=== PATIENT | male | born 1995 | race Two or more races ===

== ENCOUNTER 2018-02-10 13:40 | Emergency (ER) | payer OTHER ==
--- NOTE | 2018-02-10 15:51 | ED Physician Documentation ---
PD HPI URI - Stated complaint Stated Complaint: OBJECT STUCK IN THROAT - Chief complaint Chief Complaint: Heent - History obtained from History obtained from: Patient - History of Present Illness Timing - onset: How many hours ago (3), Today Timing duration: Hours (3) Timing details: Abrupt onset (eating chicken and rice, felt that it got stuck in esophagus. No choking nor dyspnea. Tried sips water but just vomiting it back up. Having to spit out saliva periodically as well. No prior similar. No regular reflux.) Associated symptoms: No: Fever, Chills, Nasal congestion, Dry cough Contributing factors: No: Sick contact, Travel, Immunocompromised Similar symptoms before: Has not had sx before Recently seen: Not recently seen Review of Systems GI: reports: Other (no regular reflux nor heartburn). denies: Abdominal Pain, Diarrhea Skin: denies: Rash, Lesions Neurologic: denies: Generalized weakness, Focal weakness, Numbness, Near syncope PD PAST MEDICAL HISTORY - Past Medical History Past Medical History: No - Past Surgical History Past Surgical History: No - Present Medications Home Medications: Ambulatory Orders Medication Instructions Recorded Confirmed No Known Home Medications [No 02/10/18 02/10/18 Known Home Medications] - Allergies Allergies/Adverse Reactions: Allergies Allergy/AdvReac Type Severity Reaction Status Date / Time No Known Drug Allergies Allergy Verified 02/10/18 13:58 - Social History Does the pt smoke?: No Smoking Status: Never smoker - Immunizations Immunizations are current?: Yes PD ED PE NORMAL - Vitals Vital signs reviewed: Yes - General General: Alert and oriented X 3, No acute distress (holding emesis bag and spitting saliva periodically. ), Well developed/nourished - HEENT HEENT: Pharynx benign - Neck Neck: Supple, no meningeal sign, No adenopathy - Cardiac Cardiac: RRR, No murmur - Respiratory Respiratory: Clear bilaterally - Abdomen Abdomen: Normal bowel sounds, Soft, Non tender, Non distended - Back Back: No CVA TTP - Derm Derm: Normal color, Warm and dry - Extremities Extremities: No deformity, No tenderness to palpate, Normal ROM s pain - Neuro Neuro: Alert and oriented X 3, No motor deficit, Normal speech - Psych Psych: Normal mood, Normal affect Results - Vitals Vitals: Vital Signs - 24 hr 02/10/18 02/10/18 13:57 17:32 Temperature 36.4 C L 36.5 C Heart Rate 55 L 61 Respiratory 18 20 Rate Blood Pressure 123/77 113/65 O2 Saturation 100 100 Oxygen O2 Source Room air - Labs Labs: Laboratory Tests 02/10/18 16:21 Sodium 141 Potassium 3.7 Chloride 102 Carbon Dioxide 32 Anion Gap 7.0 BUN 14 Creatinine 1.1 Estimated GFR (MDRD) 83 L Glucose 99 Calcium 9.8 Total Bilirubin 1.0 AST 27 ALT 19 Alkaline Phosphatase 83 Total Protein 8.1 Albumin 4.8 Globulin 3.3 Albumin/Globulin Ratio 1.5 Lipase 27 - Rads (name of study) Chest Radiology: Prelim report reviewed, EMP read contemporaneously (showing fluid level just below the clavicles, c/w the foreign body being mid esophagus (below the fluid layer of course). ) PD MEDICAL DECISION MAKING - ED course Complexity details: considered differential (No history of reflux but just a random occurrence of the food getting stuck. He is having to spit up his saliva. We tried IV medications of Decadron and Ativan and then EZ casts and carbonated beverage orally. He is still unable to swallow. Will check with GI at [facility] as our surgeon marketing automation specialist does not scope for foreign bodies.), d/w patient, d/w reimbursement consultant (Dr. Ferrer, GI at [place], who will scope the patient with it appearing mid esophagus or lower. ) Departure - Departure Disposition: 02 Transfer Acute Care Hosp Clinical Impression: Food impaction of esophagus Qualifiers: Encounter type: initial encounter Qualified Code(s): T18.128A - Food in esophagus causing other injury, initial encounter Condition: Stable Record reviewed to determine appropriate education?: Yes
[2018-02-10] MEDS ORDERED: SODIUM CHLORIDE 0.9% 1,000 ML IV ONE (16:08)
[2018-02-10] MEDS ORDERED: GLUCAGON 1 MG/ML VIAL IVP STA (16:08)
[2018-02-10] MEDS ORDERED: LORazepam 2 MG/ML VIAL IVP STA ×2 (16:09→17:19)
[2018-02-10] MEDS ORDERED: WATER FOR INJECTION,STERILE 10 ML ONE (16:36)
[2018-02-10 16:41] LABS: ALBUMIN 4.8 g/dL (3.2-5.5); ALBUMIN/GLOBULIN RATIO 1.5 (1.0-2.2); CALCIUM 9.8 mg/dL (8.5-10.3); CREATININE 1.1 mg/dL (0.6-1.2); TOTAL PROTEIN 8.1 g/dL (6.7-8.2)
[2018-02-10 17:32] VITALS: BP 113/65
--- NOTE | 2018-02-10 18:11 | XRAY Report ---
EXAM: CHEST RADIOGRAPHY EXAM DATE: 02/10/2018 05:50 PM. CLINICAL HISTORY: Esophageal FB. COMPARISON: None. TECHNIQUE: 1 view. FINDINGS: Lungs/Pleura: No focal opacities evident. No pleural effusion. No pneumothorax. Mediastinum: The heart size is normal. The trachea is midline. No pneumomediastinum or abnormal media stinal soft tissue contour. Other: None. IMPRESSION: Negative chest. [facility] Referring Provider Line: [phone] SITE ID: [id number]
--- NOTE | 2018-02-10 18:11 | XRAY Preliminary Report ---
Exam: XR CHEST 1 VIEW X-RAY IMPRESSION: Negative chest. [facility] SITE ID: [id number]
== END 2018-02-10 19:18 | disposition short-term general hospital (02) ==
LOC: ED 13:40
DX: T18.128A Food in esophagus causing other injury, initial encounter (principal); X58.XXXA Exposure to other specified factors, initial encounter
CPT/HCPCS: 36415; 71045; 80053; 83690; 96361; 96374; 96376; 99284; J2060

== ENCOUNTER 2018-02-10 19:21 | Outpatient (CLI) | payer OTHER | END 2018-02-10 23:59 | disposition short-term general hospital (02) | LOC: EMS 19:21 | PROVIDERS: ATTEND Surgery | DX: T18.128A Food in esophagus causing other injury, initial encounter (principal) | CPT/HCPCS: A0425; A0428 ==